=== PATIENT | female | born 1960 | race Caucasian/White ===

== ENCOUNTER 2022-04-04 09:48 | Outpatient (CLI) | payer BC, SELFPAY ==
--- NOTE | ~2022-04-04 | US_ITS ---
EXAMINATION:US venous doppler LE LT INDICATION:Left lower extremity venous Doppler TECHNIQUE: Multiple grayscale, color flow and Doppler images of the left lower extremity deep venous systems were obtained and reviewed. COMPARISON:No prior studies for comparison. FINDINGS: The common femoral, superficial femoral and popliteal veins demonstrate normal respiratory variation, augmentation and compressibility. Color flow is also seen within the posterior tibial, pe roneal, greater saphenous and profunda veins. IMPRESSION: 1: No lower extremity deep venous thrombosis. Reviewed, dictated and finalized at location A.
== END 2022-04-04 09:49 | disposition home or self-care (01) ==
PROVIDERS: PCP Family Medicine; Visit Provider Family Medicine
DX: Z86.718 Personal history of other venous thrombosis and embolism (principal)
CPT/HCPCS: 93971

== ENCOUNTER 2022-04-04 11:26 | Emergency (ER) | payer BC, SELFPAY ==
--- NOTE | ~2022-04-04 | XR_ITS ---
EXAMINATION: XR tibia fibula RT 2V DATE: 04/04/2022 12:32 INDICATION: Right lower leg injury. TECHNIQUE: 2 views of right tibia and fibula were obtained. COMPARISON: None. FINDINGS: Bone alignment is normal. No fracture. There is mild osteoarthritis of lateral and patellof emoral compartments characterized by tiny osteophytes. Portions of the ankle are excluded that are in cluded on today's ankle radiographs. IMPRESSION: 1. Mild right knee osteoarthritis. Reviewed, dictated and finalized at location B.
--- NOTE | ~2022-04-04 | XR_ITS ---
EXAMINATION: XR ankle RT 2V DATE: 04/04/2022 12:32 INDICATION: Right ankle pain. Fall. TECHNIQUE: 4 views of right ankle were obtained. COMPARISON: None. FINDINGS: Bone alignment is normal. There is a fracture of anteroinferior aspect of distal fibula. Mayra int spaces are normal. There is an enthesophyte at plantar aspect of calcaneal tuberosity. There is a nkle soft tissue swelling. IMPRESSION: 1. Chip fracture of anteroinferior aspect of distal fibula. Reviewed, dictated and finalized at location B.
--- NOTE | 2022-04-04 11:37 | PC.NURSE ---
patient upset at time of intake due to how many people are in the ED at this time and how long she will have to wait for service. Patient educated on ED process and that we are unable to give wait times at this time.
[2022-04-04 12:13] VITALS: BP 156/89; PULSE 78; RESP 16; TEMP 36.1; O2SAT 98
--- NOTE | 2022-04-04 13:48 | ED.LOWEXIN ---
HPI - Extremity Injury (Lower) General Chief Complaint: Extremity Injury, Lower Stated Complaint: Right Food Injury Time Seen by Provider: 04/04/22 13:13 Source: patient History of Present Illness HPI Narrative: Patient presents with right ankle pain. Patient reports she rolled her ankle approximately 2 weeks ago when she fell down she was told she has a fibula fracture was splinted and follow-up with a hand heel seat fitter. First hand heel seat fitter and that her splint and quickly wrapped her ankle up and discharged her from clinic. She reports she continues to have pain on her right ankle difficulty ambulating and feels she did not get an appropriate evaluation by the hand heel seat fitter. Patient ports continued to have swelling in the area continued achy pain that is constant, worse with attempting to move her ankle or walk on it, radiates up her leg. She also reports paresthesias to her proximal lower leg. Related Data Allergies Allergy/AdvReac Type Severity Reaction Status Date / Time Penicillins Allergy Hives Verified 04/04/22 12:16 Review of Systems Review of Systems: CONSTITUTIONAL: Denies fever, chills, or sweats. EYES: Denies visual changes, redness, or discharge. ENT: Denies rhinorrhea, congestion, sore throat, or otalgia. CARDIOVASCULAR: Denies chest pain, palpitations, or edema. RESPIRATORY: Denies cough or dyspnea. GASTROINTESTINAL: Denies abdominal pain, nausea, vomiting, or diarrhea. GENITOURINARY: Denies dysuria or hematuria. SKIN: Denies rash or itching. MUSCULOSKELETAL: Denies back pain, joint pain, or myalgia. NEUROLOGIC: Denies headache, numbness, dizziness, or weakness. PSYCHIATRIC: Denies anxiety or depression. All systems reviewed & are unremarkable except as noted in HPI and below Exam Narrative: GENERAL: Well-appearing, well-nourished, and in no acute distress. HEAD: Normocephalic, atraumatic. EYES: PERRLA and EOMI. ENT: Nares clear, no rhinorrhea or epistaxis. Mucous membranes moist. NECK: Supple. No masses. No JVD EXTREMITIES: Normal range of motion. Right splint in place sensation intact to light touch range of motion of the toes intact cap refill less than 2 seconds. SKIN: Warm, dry, no rash. NEURO: No focal deficits. Alert and oriented x3. PSYCH: Normal mood and affect. Course Reevaluation(s) Reevaluation #1: Patient given contact information for orthopedics team for second opinion splint was replaced. Patient is comfortable outpatient plan. Vital Signs Vital signs: Vital Signs Temperature 36.1 C L 04/04/22 12:13 Pulse Rate 78 04/04/22 12:13 Respiratory Rate 16 04/04/22 12:13 Blood Pressure 156/89 H 04/04/22 12:13 Pulse Oximetry 98 04/04/22 12:13 Temperature 36.1 C L 04/04/22 12:13 Pulse Rate 78 04/04/22 12:13 Respiratory Rate 16 04/04/22 12:13 Blood Pressure 156/89 H 04/04/22 12:13 Pulse Oximetry 98 04/04/22 12:13 MDM - Extremity Injury (Lower) MDM Narrative Medical decision making narrative: H&P as above, vss, pt looks clinically well, exam with neurovascularly intact extremity, imaging with distal fibula fracture, additional labs/img considered, symptomatic relief available as needed, on reevaluation pt continues to looks clinically well. Suspect fracture is causing patient's pain, dns major neurovascular compromise, compartment syndrome due to edema ligamentous evaluation is limited. plan to tx/monitor as op w/ pcm and Ortho f/u findings/plan discussed with pt, pt agree/comfortable with plan, return precautions given Imaging Data Radiologist's impression: Impressions Ankle X-Ray 04/04/22 12:34 IMPRESSION: 1. Chip fracture of anteroinferior aspect of distal fibula. Tibia/Fibula X-Ray 04/04/22 12:36 IMPRESSION: 1. Mild right knee osteoarthritis. Discharge Plan Discharge Clinical Impression: Fibula fracture Qualifiers: Encounter type: subsequent encounter Fibula location: distal Fracture type: closed Fracture morphology: unspecified fracture morphol
== END 2022-04-04 14:57 | disposition home or self-care (01) ==
LOC: ANHED 14:31
PROVIDERS: Emergency Provider Emergency Medicine; PCP Family Medicine
DX: S82.831A Other fracture of upper and lower end of right fibula, initial encounter for closed fracture (principal); M17.11 Unilateral primary osteoarthritis, right knee; W19.XXXA Unspecified fall, initial encounter
CPT/HCPCS: 29515; 73590; 73600; 93971; 99284

== ENCOUNTER 2022-06-20 09:07 | Outpatient (CLI) | payer BC, SELFPAY ==
--- NOTE | ~2022-06-20 | DEXA_ITS ---
Bone Density Report Name: WALESKA BOLANOS Age: 61 Sex: Female Ethnicity: White Date of : 1960 Indication: postmenopausal; screening for osteoporosis; height loss; Referring Provider: KYRIE, [facility] Study: Bone densitometry was performed. Exam Date: June 20, 2022 Accession number: [id number] Bone Density: Region BMD T-score Z-score Classification AP Spine(L1-L4) 0.946 -0.9 0.5 Normal Femoral Neck (Left) 0.765 -0.8 0.6 Normal Total Hip (Left) 0.962 0.2 1.2 Normal Femoral Neck (Right) 0.727 -1.1 0.2 Osteopenia Total Hip (Right) 0.875 -0.5 0.4 Normal Total Hip Mean 0.919 -0.2 0.8 Normal World Health Organization criteria for BMD impression classify patients as: Normal (T-score at or above -1.0), Osteopenia (T-score between -1.0 and -2.5), or Osteoporosis (T-score at or below -2.5). 10-year Fracture Risk(1): Major Osteoporotic Fracture 7.3% Hip Fracture 0.5% Reported Risk Factors: [place] (), Neck BMD=0.727, BMI=27.6 (1) FRAX(R) Version 3.08. Fracture probability calculated for an untreated patient. Fracture probability may be lower if the patient has received treatment. Clinical Information Provided by Patient: Patient maximum height was 67 Menopause Age: 55 No regular weight bearing exercise Drinks caffeinated beverages Onset of menses at age 14 Number of children 5 Impression: The patient has low bone mass, based on the Right Femoral Neck T-score. The patient has an estimated ten-year risk of hip fracture of 0.5% and an estimated ten-year risk of major fracture of 7.3%, based on the WHO FRAX algorithm. Discussion: BONE DENSITY IS LOW AT ONE OR MORE SKELETAL SITES. This patient's lowest T-score is low at one or more skeletal sites. It meets the World Health Organization's (WHO) criteria for ?low bone mass? (T-score between -1.0 and -2.5). The patient's 10-year risk of fracture as calculated by FRAX is less than the threshold where pharmacological therapy is recommended by the National Osteoporosis Foundation (NOF). However, all treatment decisions require clinical judgment and consideration of individual patient factors, including patient preferences, comorbidities, previous drug use, risk factors not captured in the FRAX model (e.g., frailty, falls, vitamin D deficiency, increased bone turnover, interval significant decline in bone density) and possible under or overestimation of fracture risk by FRAX. The patient should follow a healthful lifestyle (good nutrition with adequate calcium and vitamin D, and appropriate weight-bearing exercise). Follow-Up: Consider repeating this study in 2 to 3 years to reassess this patient's status, or sooner if there is some new clinical indication. Reported by: NOELLE on 06/20/2022 9:29:00 AM.
== END 2022-06-20 09:08 | disposition home or self-care (01) ==
PROVIDERS: PCP Family Medicine; Visit Provider Family Medicine
DX: Z91.89 Other specified personal risk factors, not elsewhere classified (principal); M85.851 Other specified disorders of bone density and structure, right thigh
CPT/HCPCS: 77080